=== PATIENT | female | born 1990 | race Caucasian/White ===

== ENCOUNTER 2019-04-08 06:50 | Emergency (ER) | payer MEDICAID ==
[~2019-04-08] VITALS: Ht 167.6 cm; Wt 2.4 kg
[2019-04-08 06:52] VITALS: BP 121/84
[2019-04-08 09:51] LABS: Hepatitis B Surface Antibody Positive
[2019-04-08 14:04] LABS: Hepatitis B Surface Antigen Negative (Negative)
== END 2019-04-08 08:44 | disposition home or self-care (01) ==
LOC: ER 06:53
DX: S69.81XA Other specified injuries of right wrist, hand and finger(s), initial encounter (principal); Z88.0 Allergy status to penicillin; W46.0XXA Contact with hypodermic needle, initial encounter; Y93.89 Activity, other specified; Y92.89 Other specified places as the place of occurrence of the external cause; Y99.8 Other external cause status
CPT/HCPCS: 36415; 86703; 86706; 86803; 87340

== ENCOUNTER 2019-04-08 16:58 | Emergency (ER) | payer MEDICAID ==
[~2019-04-08] VITALS: Ht 167.6 cm; Wt 86.2 kg
[2019-04-08 17:04] VITALS: BP 124/87
== END 2019-04-08 17:25 | disposition left against medical advice (07) ==
LOC: ER 16:58
DX: Z20.9 Contact with and (suspected) exposure to unspecified communicable disease (principal); Z53.21 Procedure and treatment not carried out due to patient leaving prior to being seen by health care provider